=== PATIENT | male | born 1985 | race Caucasian/White ===

== ENCOUNTER 2016-09-16 16:44 | Inpatient (IN) ==
[2016-09-16] MEDS ORDERED: SODIUM CHLORIDE 0.9% INJ PRN (17:06)
[2016-09-16] MEDS ORDERED: PHENERGAN IV PRN (17:06)
[2016-09-16] MEDS: HYDROCODONE/APAP 7.5-325/15 ML PO PRN ×3 (17:39→23:54)
[2016-09-16] MEDS: D5 1/2 NS 1,000 ML IV SCH (17:42)
[2016-09-16 18:14] LABS: MANUAL DIFF NEEDED? NO
[2016-09-16 18:17] LABS: BASO% 0.3 % (0.0-0.8); EOS% 2.6 % (0.0-10.0); HEMATOCRIT 44.2 % (42.0-52.0); HEMOGLOBIN 14.9 g/dL (14.0-18.0); IMM GRAN# 0.04 X1000 (0.0-0.04); IMM GRAN% 0.3 % (0.0-0.5); LYMPH# 1.61 X1000 (1.2-3.4); LYMPH% 10.6 % (20.5-51.1); MCH 28.6 PG (27-31); MCHC 33.7 g/dL (33-37); MCV 84.8 FL (81-99); MONO# 1.71 X1000 (0.11-0.59); MONO% 11.3 % (1.7-9.3); MPV 8.9 FL (7.4-10.4); NEUT% 74.9 % (42.2-75.2); PLT 299 X1000 (130-400); RBC 5.21 XMIL (4.7-6.1)
[2016-09-16] MEDS: CLINDAMYCIN 300 MG in NS 50 ML IV SCH ×2 (19:27→23:54)
[2016-09-16] MEDS ORDERED: PNEUMOVAX 23 IM ONE (19:55)
[2016-09-16] MEDS ORDERED: FLUZONE QUAD 2016-2017 SYRINGE IM ONE (19:56)
[2016-09-17] MEDS: CLINDAMYCIN 300 MG in NS 50 ML IV SCH ×2 (06:12→12:06)
--- NOTE | 2016-09-17 10:53 | HISTORY AND PHYSICAL ---
HISTORY OF PRESENT ILLNESS: Mr. Barnes is a 30-year-old male who presented to my office with a complaint of a 4- to 5-day history of worsening submandibular pain and swelling. He notes he has been seen at the urgent care clinic and emergency room with antibiotic treatment of various antibiotics with increased worsening of his symptoms. He denies any fevers or chills. He denies any dysphagia or odynophagia. PAST MEDICAL HISTORY: Denies. MEDICATIONS: Z-Tate. ALLERGIES: Toradol. PAST SURGICAL HISTORY: Myringotomy tube, oral surgery. SOCIAL HISTORY: The patient lives in [place]. 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 He smokes 1/2 pack per day and denies any history of alcohol or illicit drug use. REVIEW OF SYSTEMS: Per HPI. PHYSICAL EXAMINATION: GENERAL: A well-developed, well-nourished white male, in no acute distress. HEENT: Normocephalic, atraumatic. Pupils equally round and reactive to light. Extraocular movements intact. Sclerae are anicteric. Tympanic membranes clear. Nares patent. Oral cavity and oropharynx, there is moderate right submandibular erythema and edema. Intraorally tooth number 31 is with large carious lesion. There is mild right floor of mouth edema. Oropharynx is clear. There is no lateral pharyngeal erythema or edema. CARDIOVASCULAR: Regular rate and rhythm without murmurs, gallops, or rubs. PULMONARY: Bilaterally clear to auscultation. ABDOMEN: Soft, nontender, nondistended. EXTREMITIES: No clubbing, cyanosis, or edema. NEUROLOGICAL: Cranial nerves 2 through 12 are grossly intact. RADIOLOGIC: Periapical radiograph with grossly carious tooth number 31 with periapical lesion. ASSESSMENT: 1. Right submandibular space abscess. 2. Abscessed tooth number 31. PLAN: The patient will be admitted to [facility] and placed on clindamycin IV. We will schedule him for the OR for incision and drainage of right submandibular space abscess with extraction of number 31.
[2016-09-17] MEDS ORDERED: XYLOCAINE 1%/EPI 1:100,000 ONE (10:57)
[2016-09-17] MEDS ORDERED: SENSORCAINE 0.25%/EPI 1:200,000 ONE (11:02)
[2016-09-17] MEDS ORDERED: PERIDEX MT ONE (11:15)
[2016-09-17] MEDS: D5 1/2 NS 1,000 ML IV SCH (11:25)
[2016-09-17] MEDS ORDERED: CLAVE SECONDARY SET 11953 ONE (12:01)
[2016-09-17] MEDS: DEMEROL ONE ×2 (13:18→13:44)
[2016-09-17] MEDS ORDERED: VERSED ONE (13:19)
[2016-09-17] MEDS ORDERED: FENTANYL ONE (13:19)
[2016-09-17] MEDS ORDERED: DIPRIVAN 1% ONE (13:20)
[2016-09-17] MEDS ORDERED: DEMEROL ONE (13:54)
[2016-09-17] MEDS ORDERED: LR 500 ML ONE (13:59)
[2016-09-17] MEDS: HYDROCODONE/APAP 7.5-325/15 ML PO PRN ×3 (14:52→23:32)
[2016-09-17] MEDS ORDERED: LR 1,000 ML ONE (16:01)
[2016-09-17] MEDS ORDERED: ZOFRAN ONE (16:01)
[2016-09-17] MEDS ORDERED: DECADRON ONE (16:01)
[2016-09-17] MEDS ORDERED: XYLOCAINE-MPF 2% ONE (16:01)
[2016-09-17] MEDS ORDERED: ANESTHESIA PB SET 88 IN 5742 ONE (16:01)
[2016-09-17] MEDS ORDERED: EXTENSION SET 32 IN 4522 ONE (16:01)
[2016-09-17] MEDS ORDERED: ROBINUL ONE (16:01)
--- NOTE | 2016-09-17 17:14 | OPERATIVE NOTE ---
PROCEDURE DATE: 09/17/2016 DIAGNOSES: 1. Right submandibular space abscess. 2. Abscessed tooth #31. PROCEDURES: 1. Incision and drainage right submandibular space abscess. 2. Extraction #31. SURGEON: Dr. Maurice Franco. MOLD CLAMPER: Tana Johnson. ANESTHESIA: General endotracheal anesthesia. COMPLICATIONS: None. ESTIMATED BLOOD LOSS: 20 mL. DRAINS: 0.5 inch Reinbeck. CULTURES: Pending. DESCRIPTION OF PROCEDURE: Patient was taken to OR 2 and placed in the supine position. General anesthesia was then induced via endotracheal intubation. The patient was prepped and draped in the usual sterile fashion. A throat pack and bite block were placed. Oral cavity prepped with Peridex. Local anesthesia was then administered, 1% lidocaine, 1:100,000 epinephrine, 9 mL via right submandibular skin crease, right inferior alveolar nerve block and right buccal nerve block. Attention was then focused to the submandibular region where a 1 cm skin incision was created with a 15 blade and a right submandibular skin crease. Incision was carried through skin and subcutaneous tissues. Hemostat was then used to dissect superiorly releasing a small loculation of purulence. The dissection was then continued to carry superiorly to the inferior border of the mandible where the lateral and medial border of the mandible were swept and released. The incision and drainage was then copiously irrigated with sterile saline. A 0.5 inch Jacek drain was then inserted through the drainage site and secured with two 3-0 silk suture. Attention was then focused intraorally where a 15 blade was used to create a crestal incision from the right retromolar pad to the 1st molar. Full-thickness mucoperiosteal flap elevated. A fissure bur was used to create a buccal trough around #31 and tooth was split, elevated, and extracted. Site was irrigated with sterile saline. Closed with 3-0 chromic suture. Throat pack and bite block were removed. Gauze packs placed. The right submandibular site was bandaged. The patient was then awakened in the OR, and transported to recovery in stable condition. All needle and sponge counts were correct.
[2016-09-17] MEDS: MORPHINE IV PRN ×2 (17:41→22:15)
[2016-09-17] MEDS: CLINDAMYCIN 600 MG in NS 50 ML IV SCH ×2 (17:44→23:34)
[2016-09-17] MEDS: PERIDEX MT SCH (23:00)
[2016-09-18] MEDS: HYDROCODONE/APAP 7.5-325/15 ML PO PRN ×5 (05:31→23:12)
[2016-09-18] MEDS: D5 1/2 NS 1,000 ML IV SCH ×2 (05:32→14:06)
[2016-09-18 06:14] LABS: MANUAL DIFF NEEDED? NO
[2016-09-18 06:31] LABS: BASO% 0.1 % (0.0-0.8); EOS# 0.19 X1000 (0.0-0.7); EOS% 1.3 % (0.0-10.0); HEMATOCRIT 43.2 % (42.0-52.0); HEMOGLOBIN 14.6 g/dL (14.0-18.0); IMM GRAN# 0.03 X1000 (0.0-0.04); IMM GRAN% 0.2 % (0.0-0.5); LYMPH# 1.85 X1000 (1.2-3.4); LYMPH% 12.7 % (20.5-51.1); MCH 28.3 PG (27-31); MCHC 33.8 g/dL (33-37); MCV 83.9 FL (81-99); MONO# 2.23 X1000 (0.11-0.59); MONO% 15.4 % (1.7-9.3); MPV 8.8 FL (7.4-10.4); NEUT% 70.3 % (42.2-75.2); PLT 280 X1000 (130-400); RBC 5.15 XMIL (4.7-6.1)
[2016-09-18] MEDS: CLINDAMYCIN 600 MG in NS 50 ML IV SCH ×3 (06:50→17:53)
[2016-09-18] MEDS: PERIDEX MT SCH ×2 (09:47→20:38)
[2016-09-18] MEDS: MORPHINE IV PRN ×3 (11:36→20:38)
[2016-09-19] MEDS: CLINDAMYCIN 600 MG in NS 50 ML IV SCH ×3 (00:14→13:18)
[2016-09-19] MEDS: MORPHINE IV PRN ×4 (00:15→18:22)
[2016-09-19] MEDS: HYDROCODONE/APAP 7.5-325/15 ML PO PRN ×5 (04:44→22:40)
[2016-09-19] MEDS: D5 1/2 NS 1,000 ML IV SCH ×2 (05:32→17:01)
[2016-09-19 05:55] LABS: MANUAL DIFF NEEDED? NO
[2016-09-19 06:03] LABS: BASO% 0.3 % (0.0-0.8); EOS# 0.75 X1000 (0.0-0.7); EOS% 6.5 % (0.0-10.0); HEMATOCRIT 40.5 % (42.0-52.0); HEMOGLOBIN 13.7 g/dL (14.0-18.0); IMM GRAN# 0.03 X1000 (0.0-0.04); IMM GRAN% 0.3 % (0.0-0.5); LYMPH# 2.25 X1000 (1.2-3.4); LYMPH% 19.6 % (20.5-51.1); MCH 28.5 PG (27-31); MCHC 33.8 g/dL (33-37); MCV 84.2 FL (81-99); MONO# 1.75 X1000 (0.11-0.59); MONO% 15.3 % (1.7-9.3); MPV 8.9 FL (7.4-10.4); PLT 275 X1000 (130-400); RBC 4.81 XMIL (4.7-6.1)
[2016-09-19] MEDS: PERIDEX MT SCH ×2 (09:39→21:47)
[2016-09-20] MEDS: HYDROCODONE/APAP 7.5-325/15 ML PO PRN ×3 (02:59→12:09)
[2016-09-20] MEDS: CLINDAMYCIN 600 MG in NS 50 ML IV SCH ×4 (03:23→12:16)
[2016-09-20 03:57] VITALS: BP 132/74
[2016-09-20 05:40] LABS: MANUAL DIFF NEEDED? NO
[2016-09-20 05:48] LABS: BASO% 0.4 % (0.0-0.8); EOS# 0.76 X1000 (0.0-0.7); EOS% 6.6 % (0.0-10.0); HEMATOCRIT 40.9 % (42.0-52.0); HEMOGLOBIN 13.7 g/dL (14.0-18.0); IMM GRAN# 0.02 X1000 (0.0-0.04); IMM GRAN% 0.2 % (0.0-0.5); LYMPH# 1.93 X1000 (1.2-3.4); LYMPH% 16.6 % (20.5-51.1); MCHC 33.5 g/dL (33-37); MCV 83.6 FL (81-99); MONO# 1.45 X1000 (0.11-0.59); MONO% 12.5 % (1.7-9.3); MPV 8.7 FL (7.4-10.4); NEUT% 63.7 % (42.2-75.2); PLT 288 X1000 (130-400); RBC 4.89 XMIL (4.7-6.1)
[2016-09-20] MEDS: D5 1/2 NS 1,000 ML IV SCH ×3 (07:39→08:14)
[2016-09-20] MEDS: PERIDEX MT SCH ×2 (07:42→12:12)
[2016-09-20] MEDS: MORPHINE IV PRN ×2 (09:10→15:11)
== END 2016-09-20 16:45 | disposition home or self-care (01) | DRG 158 ==
LOC: 4N 16:44
PROVIDERS: ADMIT Dentist Oral and Maxillofacial Surgery; ATTEND Dentist Oral and Maxillofacial Surgery
PROC: 0CTX0Z0 Resection of Lower Tooth, Single, Open Approach (ICD-10-PCS; principal; 2016-09-17 12:18)
PROC: 0W9 Anatomical Regions, General, Drainage (ICD-10-PCS; 2016-09-17 12:18)
DX: K04.7 Periapical abscess without sinus (principal); K12.2 Cellulitis and abscess of mouth; F17.210 Nicotine dependence, cigarettes, uncomplicated
CPT/HCPCS: 85025; 87070; 87075; 87076; 87205; 88300; 94761; J1100; J2175; J2250; J2270; J2405; J2550; J3010; J7120; S0077